=== PATIENT | female | born 1980 | race Caucasian/White ===

== ENCOUNTER 2019-07-01 05:40 | Day surgery (SDC) | payer MEDICAID ==
[~2019-07-01] VITALS: Ht 154.9 cm; Wt 73.9 kg
[2019-07-01 06:11] VITALS: BP 120/74; PULSE 76; TEMP 98.2
[2019-07-01] MEDS ORDERED: PROTONIX 40MG T40 MG PO (06:18)
[2019-07-01] MEDS ORDERED: NEURONTIN300 MG/CAP PO (06:18)
[2019-07-01] MEDS ORDERED: TOPAMAX50 MG PO (06:19)
[2019-07-01] MEDS ORDERED: MOBIC15 MG PO (06:19)
[2019-07-01] MEDS ORDERED: BUSPIRONE HCL7.5 MG PO (06:19)
[2019-07-01] MEDS ORDERED: FLEXERIL 1010 MG/TAB PO (06:20)
--- NOTE | 2019-07-01 06:22 | NUR ---
TO RM AT 0547- CALL LIGHT IN REACH MOTHER AT BEDSIDE.
[2019-07-01 08:15] VITALS: BP 129/77; PULSE 75; TEMP 97.7
--- NOTE | 2019-07-01 08:15 | NUR ---
TO RM 1 PER CART FROM PACU. ALERT ORIENTED X3, TALKING TO MOTHER AND STAFF. AMBULATED TO BATHROOM. VOIDED AND TOLERATED WELL.
[2019-07-01 08:30] VITALS: BP 135/84; PULSE 69
--- NOTE | 2019-07-01 08:30 | NUR ---
LETYD VANILLA PUDDING AND WATER.
[2019-07-01] MEDS ORDERED: NORCO 325 MG-51 TAB PO (08:33)
[2019-07-01 08:45] VITALS: BP 136/80; PULSE 68
--- NOTE | 2019-07-01 08:45 | NUR ---
ATE 100% AND TOLERATED WELL
[2019-07-01 09:00] VITALS: BP 132/78; PULSE 70
--- NOTE | 2019-07-01 09:35 | NUR ---
RECEIVED DISCHARGE INSTRUCTIONS AND VERBALIZED UNDERSTANDING. DISCONTINUED IV AND INT- CATHETER INTACT
--- NOTE | 2019-07-01 09:45 | NUR ---
DISCHARGED PER WC BY NURSING STAFF TO PRIVATE CAR IN CARE OF MOTHER - [place].
== END 2019-07-01 10:12 | disposition home or self-care (01) ==
LOC: SDCO 05:40
DX: N13.2 Hydronephrosis with renal and ureteral calculous obstruction (principal); F17.210 Nicotine dependence, cigarettes, uncomplicated; Z90.49 Acquired absence of other specified parts of digestive tract; K21.9 Gastro-esophageal reflux disease without esophagitis; K44.9 Diaphragmatic hernia without obstruction or gangrene; G43.909 Migraine, unspecified, not intractable, without status migrainosus
CPT/HCPCS: C1769; C2617; J0690; J1100; J1885; J2405; J2704; J3010; J7120; Q9967

== ENCOUNTER → 2022-12-11 | Outpatient (CLI) | payer MEDICAID ==
[~2022-12-11] MED LIST: BUSPIRONE HCL7.5 MG PO; FLEXERIL 1010 MG/TAB PO; MOBIC15 MG PO; NEURONTIN300 MG/CAP PO; NORCO 325 MG-51 TAB PO; PROTONIX 40MG T40 MG PO; TOPAMAX50 MG PO
== END ==
LOC: MHCPAIN 11:23
DX: M25.512 Pain in left shoulder (principal); M79.18 Myalgia, other site; M79.2 Neuralgia and neuritis, unspecified; Z98.1 Arthrodesis status
CPT/HCPCS: G0463

== ENCOUNTER → 2023-08-26 | Outpatient (CLI) | payer MEDICAID | LOC: MHCPAIN 10:24 | DX: M54.12 Radiculopathy, cervical region (principal); M79.2 Neuralgia and neuritis, unspecified; Z98.1 Arthrodesis status; M54.50 Low back pain, unspecified | CPT/HCPCS: G0463 ==

== ENCOUNTER → 2023-08-26 | Outpatient (CLI) | payer MEDICAID | LOC: COL.RAD 11:46 | DX: M25.551 Pain in right hip (principal) ==

== ENCOUNTER → 2023-10-20 | Outpatient (CLI) | payer MEDICAID ==
[~2023-10-20] MED LIST changes: +Iohexol 300 - 10 ML VIAL ONE; +Triamcinolone 40 MG/ML 1 ML VIAL ONE
== END ==
LOC: MHCPAIN 09:12
DX: M47.898 Other spondylosis, sacral and sacrococcygeal region (principal); M54.50 Low back pain, unspecified; M53.3 Sacrococcygeal disorders, not elsewhere classified
CPT/HCPCS: J3301; Q9967

== ENCOUNTER → 2024-01-22 | Outpatient (CLI) | payer MEDICAID ==
[~2024-01-22] MED LIST changes: -Iohexol 300 - 10 ML VIAL ONE; +Lidocaine PF 1% (10 MG/ML) 5 ML VIAL ONE; -Triamcinolone 40 MG/ML 1 ML VIAL ONE
== END ==
LOC: MHCPAIN 09:53
DX: M79.18 Myalgia, other site (principal); G54.0 Brachial plexus disorders

== ENCOUNTER → 2024-03-22 | Outpatient (CLI) | payer SELFPAY ==
[~2024-03-22] MED LIST changes: -Lidocaine PF 1% (10 MG/ML) 5 ML VIAL ONE
== END ==
LOC: MHCPAIN 11:21
DX: M79.18 Myalgia, other site (principal); R20.2 Paresthesia of skin; M54.31 Sciatica, right side; M25.851 Other specified joint disorders, right hip
CPT/HCPCS: G0463